=== PATIENT | male | born 1975 ===

== ENCOUNTER 2024-11-14 07:06 | Day surgery (SDC) | payer OTHER ==
[~2024-11-14] VITALS: Ht 170.2 cm; Wt 93.6 kg
[~2024-11-14 07:06] MED LIST: CEPH500 PO; OXYACE5T PO; PRED20 PO; PROM25 PO; SULTRIDS PO; VALA500 PO
[2024-11-14] MEDS ORDERED: propofoL 50 ML IV ONE (08:11)
[2024-11-14] MEDS ORDERED: Lactated Ringer's 1,000 ML IV ONE ×2 (08:12→08:25)
--- NOTE | 2024-11-14 08:26 | NUR ---
11/14/24 0826 Cuca Waller PT. DENIES ANY PAIN.
== END 2024-11-14 09:38 | disposition home or self-care (01) ==
LOC: ORSCSDS 07:06
DX: Z12.11 Encounter for screening for malignant neoplasm of colon (principal); K63.5 Polyp of colon; D12.3 Benign neoplasm of transverse colon; E11.9 Type 2 diabetes mellitus without complications; I10 Essential (primary) hypertension; E66.9 Obesity, unspecified; Z68.32 Body mass index [BMI] 32.0-32.9, adult
CPT/HCPCS: 88305; J2704; J7120